=== PATIENT | female | born 1985 ===

== ENCOUNTER 2018-07-06 09:31 | Emergency (ER) | payer OTHER ==
[2018-07-06 09:42] VITALS: RESP 18
[2018-07-06 10:33] LABS: SQUAMOUS EPITHIAL 5 /hpf (0-5); URINE BACTERIA RARE (<OCC); URINE BILIRUBIN NEGATIVE (NEGATIVE); URINE BLOOD NEGATIVE (NEGATIVE); URINE CLARITY Clear (Clear); URINE COLOR Yellow (YELLOW); URINE GLUCOSE (UA) NORMAL (Normal); URINE LEUKOCYTE ESTERASE TRACE Leu/uL (Negative); URINE PROTEIN NEGATIVE (NEGATIVE); URINE UROBILINOGEN NORMAL mg/dL (0.2-1.0)
--- NOTE | 2018-07-06 12:10 | C.PDOC ---
History Of Present Illness 32 y/o female pt presents to the ER c/o left sided flank pain for x1 week. Associated sx includes dysuria. Pt reports pain is dull and intermittent. Pt denies fever, vomiting, diarrhea and dysuria. Time Seen by Provider: 07/06/18 10:09 Chief Complaint (Nursing): Abdominal Pain History Per: Patient History/Exam Limitations: no limitations Onset/Duration Of Symptoms: Days (x1 week) Current Symptoms Are (Timing): Still Present Severity: Moderate Pain Scale Rating Of: 5 Quality Of Discomfort: Dull Past Medical History Reviewed: Historical Data, Nursing Documentation, Vital Signs Vital Signs: Last Vital Signs Temp 98.1 F 07/06/18 09:38 Pulse 63 07/06/18 11:31 Resp 18 07/06/18 11:31 BP 104/68 07/06/18 11:31 Pulse Ox 98 07/06/18 11:31 Surgical History: No Surg Hx Family History: States: No Known Family Hx - Social History Hx Tobacco Use: No Hx Alcohol Use: No Hx Substance Use: No - Immunization History Hx Tetanus Toxoid Vaccination: No Hx Influenza Vaccination: No Hx Pneumococcal Vaccination: No Review Of Systems Except As Marked, All Systems Reviewed And Found Negative. Constitutional: Negative for: Fever Gastrointestinal: Positive for: Abdominal Pain (intermittent left sided flank pain ). Negative for: Vomiting, Diarrhea Genitourinary: Positive for: Dysuria Physical Exam - Physical Exam Appears: Non-toxic, No Acute Distress Skin: Warm, Dry Head: Normacephalic Eye(s): bilateral: Normal Inspection, EOMI Ear(s): Bilateral: Normal Nose: Normal Oral Mucosa: Moist Throat: Normal Neck: Normal ROM, Supple Chest: Symmetrical Cardiovascular: Rhythm Regular Respiratory: Normal Breath Sounds, No Rales, No Rhonchi, No Wheezing Gastrointestinal/Abdominal: Soft, Tenderness (left sided flank), No Distention, No Guarding, No Rebound Back: No CVA Tenderness Extremity: Normal ROM (x4), No Tenderness, No Pedal Edema, No Calf Tenderness, Capillary Refill (<2 sec), No Deformity, No Swelling Neurological/Psych: Oriented x3, Normal Speech, Normal Motor, Normal Sensation ED Course And Treatment - Laboratory Results Lab Results: Urine Color Yellow (YELLOW) 07/06/18 10:19 Urine Clarity Clear (Clear) 07/06/18 10:19 Urine pH 5.0 (5.0-8.0) 07/06/18 10:19 Ur Specific [place] 1.023 (1.003-1.030) 07/06/18 10:19 Urine Protein Negative mg/dL (NEGATIVE) 07/06/18 10:19 Urine Glucose (UA) Normal mg/dL (Normal) 07/06/18 10:19 Urine Ketones Negative mg/dL (NEGATIVE) 07/06/18 10:19 Urine Blood Negative (NEGATIVE) 07/06/18 10:19 Urine Nitrate Negative (NEGATIVE) 07/06/18 10:19 Urine Bilirubin Negative (NEGATIVE) 07/06/18 10:19 Urine Urobilinogen Normal mg/dL (0.2-1.0) 07/06/18 10:19 Ur Leukocyte Esterase Trace Deshaun/uL (Negative) 07/06/18 10:19 Urine WBC (Auto) 1 /hpf (0-5) 07/06/18 10:19 Urine RBC (Auto) 1 /hpf (0-3) 07/06/18 10:19 Ur Squamous Epith Cells 5 /hpf (0-5) 07/06/18 10:19 Urine Bacteria Rare (<OCC) 07/06/18 10:19 O2 Sat by Pulse Oximetry: 98 (RA) Pulse Ox Interpretation: Normal - CT Scan/US abd&pelvis CT Other Rad Studies (CT/US): Read By Radiologist, Radiology Report Reviewed CT/US Interpretation: Accession No. : [id number]. Patient Name / ID : GUTIERREZ / [id number]. Exam Date : 07/06/2018 11:19:46 ( Approved ). Study Comment : Sex / Age : F / 32Y. Creator : Rayne Edwards MD. Dictator : Rayne Edwards MD. Operating Room Surgical Technician : Circus Trainer : Rayne Edwards MD. Approver2 : Report Date : 07/06/2018 12:46:25. My Comment : . Date of service: 07/06/2018. PROCEDURE: CT Abdomen and Pelvis without intravenous contrast. HISTORY: Flank pain. COMPARISON: None. TECHNIQUE: CT scan of the abdomen and pelvis was performed without administration of intravenous contrast. Oral contrast was not administered. Coronal and sagittal reformatted images were obtained. . Radiation dose: Total exam DLP = 457.78 mGy-cm. This CT exam was performed using one or more of the following dose reduction techniques: Automated exposure control, adjustment of the mA and/or kV according to patient size, and/or use of iterative reconstruction technique. FINDINGS: LOWER THORAX: The visualized lungs are clear. LIVER: Normal in size. No intrahepatic ductal dilatation. GALLBLADDER AND BILE DUCTS: No calcified gallstones. No biliary dilatation. PANCREAS: Normal in size. No ductal dilatation. SPLEEN: Normal in size. ADRENALS: Normal in size. No discrete nodule. KIDNEYS AND URETERS: The right kidney is normal in size without hydronephrosis or nephrolithiasis. There is mild asymmetric enlargement of the left kidney and apparent low-attenuation area in the upper pole of the left kidney with minimal surrounding perinephric fat stranding. No hydronephrosis or nephrolithiasis. VASCULATURE: No aortic aneurysm. No aortic atherosclerotic calcification or mural plaque present. BOWEL: The small bowel loops are normal in caliber. Large amount of stool in the colon. No bowel dilatation or wall thickening. No bowel obstruction. APPENDIX: Normal appendix. PERITONEUM: No free fluid. No free air. LYMPH NODES: No enlarged lymph nodes. BLADDER: Well distended and grossly normal in appearance. REPRODUCTIVE: The uterus is normal in size. BONES: No acute fracture. OTHER FINDINGS: None. IMPRESSION: Mild asymmetric enlargement of the left kidney and apparent low-density area in the upper pole of the left kidney with minimal surrounding fat stranding, not completely characterized on this examination in the absence of intravenous contrast. Acute pyelonephritis is a consideration. Please correlate with urine analysis and CVA tenderness. If clinically indicated, CT scan with intravenous contrast may be performed. No hydronephrosis, nephrolithiasis or obstructive uropathy. Reevaluation Time: 13:17 Reassessment Condition: Improved (Abdomen non tender) Medical Decision Making Medical Decision Making: plans: -- abd and pelvis CT -- urine cx -- POC urine -- UA Patient with L> flank pain, signs oh pyelonephritis on CT and normal urine, will treat with antibiotics and close follow up with PMD on culture outpatient Disposition Counseled Patient/Family Regarding: Studies Performed, Diagnosis, Need For Followup, Rx Given - Disposition Referrals: Jacklyn Beach MD [Staff Provider] - Disposition: HOME/ ROUTINE Disposition Time: 13:08 Condition: STABLE Prescriptions: Cefuroxime Axetil [Cefuroxime] 500 mg PO BID #14 tablet Ibuprofen [Motrin] 600 mg PO TID #20 tab Ibuprofen [Motrin] 600 mg PO TID #20 tab Instructions: Flank Pain (DC) Forms: [facility] (Nepali), General Discharge Instructions, Gen Discharge Inst Turkish - POA Present On Arrival: None - Clinical Impression Clinical Impression: Abdominal pain, Flank pain
--- NOTE | 2018-07-06 12:50 | CT ---
Date of service: 07/06/2018 PROCEDURE: CT Abdomen and Pelvis without intravenous contrast HISTORY: Flank pain COMPARISON: None. TECHNIQUE: CT scan of the abdomen and pelvis was performed without administration of intravenous contrast. Oral contrast was not administered. Coronal and sagittal reformatted images were obtained. . Radiation dose: Total exam DLP = 457.78 mGy-cm. This CT exam was performed using one or more of the following dose reduction techniques: Automated exposure control, adjustment of the mA and/or kV according to patient size, and/or use of iterative reconstruction technique. FINDINGS: LOWER THORAX: The visualized lungs are clear. LIVER: Normal in size. No intrahepatic ductal dilatation. GALLBLADDER AND BILE DUCTS: No calcified gallstones. No biliary dilatation PANCREAS: Normal in size. No ductal dilatation. SPLEEN: Normal in size. ADRENALS: Normal in size. No discrete nodule. KIDNEYS AND URETERS: The right kidney is normal in size without hydronephrosis or nephrolithiasis. There is mild asymmetric enlargement of the left kidney and apparent low-attenuation area in the upper pole of the left kidney with minimal surrounding perinephric fat stranding. No hydronephrosis or nephrolithiasis. VASCULATURE: No aortic aneurysm. No aortic atherosclerotic calcification or mural plaque present. BOWEL: The small bowel loops are normal in caliber. Large amount of stool in the colon. No bowel dilatation or wall thickening. No bowel obstruction. APPENDIX: Normal appendix. PERITONEUM: No free fluid. No free air. LYMPH NODES: No enlarged lymph nodes. BLADDER: Well distended and grossly normal in appearance. REPRODUCTIVE: The uterus is normal in size BONES: No acute fracture. OTHER FINDINGS: None. IMPRESSION: Mild asymmetric enlargement of the left kidney and apparent low-density area in the upper pole of the left kidney with minimal surrounding fat stranding, not completely characterized on this examination in the absence of intravenous contrast. Acute pyelonephritis is a consideration. Please correlate with urine analysis and CVA tenderness. If clinically indicated, CT scan with intravenous contrast may be performed. No hydronephrosis, nephrolithiasis or obstructive uropathy.
[2018-07-06 13:19] VITALS: BP 102/69; PULSE 70; TEMP 98.4
[2018-07-06 13:44] VITALS: O2SAT 98
== END 2018-07-06 13:25 | disposition home or self-care (01) ==
LOC: C.ER 09:31
DX: R10.9 Unspecified abdominal pain (principal)

== ENCOUNTER 2018-08-09 11:16 | Emergency (ER) | payer OTHER ==
[2018-08-09 11:22] VITALS: BMI 24.0
[2018-08-09 11:25] VITALS: RESP 18
[2018-08-09] MEDS ORDERED: Aluminum Hydroxide/Magnesium Hydroxide Susp (30 mL) PO STA (11:59)
--- NOTE | 2018-08-09 12:03 | C.PDOC ---
History Of Present Illness 32 y/o female presents to the ED complaining of left-sided abdominal pain for the past 2-3 days. Patient is unable to really describe quality, but notes the pain jumps and is not affected by food. Otherwise she denies any nausea, vomiting, diarrhea, fever, chills, or urinary symptoms. Of note patient was seen here on 07/06/18 for same complaint and treated with antibiotics for pyelonephritis. Admits she did not follow up with her primary doctor after. Patient has not tried any OTC medication for symptom relief. Time Seen by Provider: 08/09/18 11:42 Chief Complaint (Nursing): Abdominal Pain History Per: Patient History/Exam Limitations: no limitations Onset/Duration Of Symptoms: Days Current Symptoms Are (Timing): Still Present Associated Symptoms: denies: Fever, Vomiting, Diarrhea Past Medical History Reviewed: Historical Data, Nursing Documentation, Vital Signs Vital Signs: Last Vital Signs Temp 97.5 F L 08/09/18 11:22 Pulse 79 08/09/18 11:22 Resp 18 08/09/18 11:22 BP 101/65 08/09/18 11:22 Pulse Ox 98 08/09/18 11:22 - Medical History PMH: Gastritis Surgical History: No Surg Hx Family History: States: No Known Family Hx - Social History Hx Tobacco Use: No Hx Alcohol Use: No Hx Substance Use: No - Immunization History Hx Tetanus Toxoid Vaccination: No Hx Influenza Vaccination: No Hx Pneumococcal Vaccination: No Review Of Systems Constitutional: Negative for: Fever, Chills Cardiovascular: Negative for: Palpitations Respiratory: Negative for: Shortness of Breath Gastrointestinal: Positive for: Abdominal Pain (left). Negative for: Nausea, Vomiting, Diarrhea, Constipation Genitourinary: Negative for: Dysuria, Frequency, Hematuria Neurological: Negative for: Weakness, Numbness Physical Exam - Physical Exam Appears: Non-toxic, No Acute Distress Skin: Warm, No Rash Head: Atraumatic, Normacephalic Eye(s): bilateral: PERRL, EOMI Neck: Normal ROM Chest: Symmetrical, No Tenderness Cardiovascular: Rhythm Regular Respiratory: No Rales, No Rhonchi, No Wheezing, Other (Lungs clear bilaterally) Gastrointestinal/Abdominal: Bowel Sounds, Soft, No Tenderness, No Distention, No Guarding, No Rebound Back: No CVA Tenderness, No Vertebral Tenderness Extremity: Normal ROM, No Calf Tenderness, No Swelling Neurological/Psych: Oriented x3, Normal Speech, Normal Cognition ED Course And Treatment O2 Sat by Pulse Oximetry: 98 (RA) Pulse Ox Interpretation: Normal Medical Decision Making Medical Decision Making: Plan: Urine sent for analysis and culture. Administered 30 ml PO Maalox. UA is neg for infection. pt is feeling better after maalox. Patient will be discharged home. Disposition Counseled Patient/Family Regarding: Studies Performed, Diagnosis, Need For Followup - Disposition Referrals: [facility] [Outside] [facility] [Outside] Disposition: HOME/ ROUTINE Disposition Time: 13:22 Condition: GOOD Additional Instructions: Daphne alex dieta blanda. Evite los alimentos grasosos, fritos. Evite los alimentos cidos, sin chocolate, menta, cerveza, alcohol, caf. Seguimiento en clnica mdica en pocos carvalho. Eat bland diet. Avoid greasy, fried foods. avoid acidic foods, no chocolate, peppermint, beer, alcohol, coffee. Follow up in medical clinic in a few days. Instructions: [place] Diet, Gastritis (DC) Forms: Gen Discharge Inst Malaysian, [employer] (Malaysian) Print Language: SWISS - Clinical Impression Clinical Impression: Gastritis - PA / ENVELOPE ADJUSTER / Resident Statement MD/DO has reviewed & agrees with the documentation as recorded. - Scribe Statement The provider has reviewed the documentation as recorded by the Scribe Katelyn Hamilton All medical record entries made by the Scribe were at my direction and personally dictated by me. I have reviewed the chart and agree that the record accurately reflects my personal performance of the history, physical exam, medical decision making, and the department course for this patient. I have also personally directed, reviewed, and agree with the discharge instructions and disposition.
[2018-08-09 12:04] LABS: HCG,QUALITATIVE URINE NEGATIVE (NEGATIVE)
[2018-08-09 12:09] LABS: SQUAMOUS EPITHIAL 20 /hpf (0-5); URINE BILIRUBIN NEGATIVE (NEGATIVE); URINE BLOOD NEGATIVE (NEGATIVE); URINE CLARITY Hazy (Clear); URINE COLOR Yellow (YELLOW); URINE GLUCOSE (UA) NORMAL (Normal); URINE LEUKOCYTE ESTERASE NEG Leu/uL (Negative); URINE PROTEIN NEGATIVE (NEGATIVE); URINE UROBILINOGEN NORMAL mg/dL (0.2-1.0)
[2018-08-09] MEDS ORDERED: Aluminum Hydroxide/Magnesium Hydroxide Susp (30 mL) ONE (12:12)
[2018-08-09 13:17] VITALS: BP 97/60; PULSE 75; TEMP 98.5
[2018-08-09 13:22] VITALS: O2SAT 98
== END 2018-08-09 13:53 | disposition home or self-care (01) ==
LOC: C.ER 11:16
DX: K29.70 Gastritis, unspecified, without bleeding (principal)